=== PATIENT | female | born 1995 | race Two or more races ===

== ENCOUNTER → 2020-10-15 15:04 | Outpatient (BNVA) | payer OTHER, SELFPAY | PROVIDERS: PCP Internal Medicine; Visit Provider Internal Medicine | DX: R07.2 Precordial pain (principal); R06.02 Shortness of breath | CPT/HCPCS: 93005; 99202 ==

== ENCOUNTER 2021-11-22 09:37 | Outpatient (REF) | payer OTHER, SELFPAY ==
[2021-11-23 06:54] LABS: CT PCR NOT DETECTED (Not Detect.); NG PCR NOT DETECTED (Not Detect.)
[2021-11-23 15:39] LABS: BV Int Neg Control Negative (Negative); BV Int Pos Control Positive (Positive)
== END 2021-11-22 09:38 | disposition home or self-care (01) ==
LOC: HO.LAB 09:37
PROVIDERS: PCP Internal Medicine; Visit Provider Advanced Practice Midwife
DX: Z01.419 Encounter for gynecological examination (general) (routine) without abnormal findings (principal); R10.9 Unspecified abdominal pain; R10.2 Pelvic and perineal pain; Z11.3 Encounter for screening for infections with a predominantly sexual mode of transmission; Z11.8 Encounter for screening for other infectious and parasitic diseases; Z11.4 Encounter for screening for human immunodeficiency virus [HIV]; Z11.59 Encounter for screening for other viral diseases; Z87.42 Personal history of other diseases of the female genital tract
CPT/HCPCS: 81025; 87086; 87480; 87491; 87510; 87591; 87660; 88142

== ENCOUNTER 2021-12-01 15:39 | Outpatient (REF) | payer OTHER, SELFPAY ==
--- NOTE | ~2021-12-01 | US_ITS ---
EXAMINATION: US PELVIS CLINICAL INFORMATION: Pelvic pain. History of ovarian cysts. COMPARISON: Previous pelvic ultrasound most recent September 2019 TECHNIQUE: Ultrasound of the pelvis is performed using both transabdominal and transvaginal transducers along with Doppler. Transvaginal imaging is performed due to inadequate visualization transabdominally. FINDINGS: The uterus is anteverted and measures 7.3 x 3.1 x 4.5 cm in dimension. No focal uterine lesion is seen. Endometrial thickness is normal measuring 0.4 cm. The ovaries are normal-appearing. The right ovary measures 3.3 x 1.8 x 2.4 cm. The left ovary measures 3 x 1.9 x 2.7 cm. There is a small 1.2 x 0.8 x 1.3 cm simple left paraovarian or adnexal cyst. There is a small amount of fluid in the pelvis. US/US pelvic and transvaginal IMPRESSION: Small simple 1.2 x 0.8 x 1.3 cm left paraovarian or adnexal cyst.
== END 2021-12-01 15:40 | disposition home or self-care (01) ==
LOC: HO.HMGCX 15:39
PROVIDERS: Visit Provider Advanced Practice Midwife
DX: R10.9 Unspecified abdominal pain (principal); Z20.2 Contact with and (suspected) exposure to infections with a predominantly sexual mode of transmission; Z87.42 Personal history of other diseases of the female genital tract
CPT/HCPCS: 76830; 76856

== ENCOUNTER 2021-12-20 12:32 | Outpatient (REF) | payer OTHER, SELFPAY ==
[2021-12-20 14:48] LABS: Syphilis Screen Nonreactive (Nonreactive)
[2021-12-21 04:35] LABS: HBsAGNum1 0.24 S/CO (0.00-0.99); HIV AB/AG Nonreactive (Nonreactive); HIV Num 1 0.05 S/CO (0.00-0.99); Hepatitis B Surface Antigen Negative (Negative); ~Hepatitis C Antibody Nonreactive (Nonreactive)
== END 2021-12-20 12:33 | disposition home or self-care (01) ==
LOC: HO.LAB 12:32
PROVIDERS: Visit Provider Advanced Practice Midwife
DX: Z01.419 Encounter for gynecological examination (general) (routine) without abnormal findings (principal); Z11.4 Encounter for screening for human immunodeficiency virus [HIV]; Z20.2 Contact with and (suspected) exposure to infections with a predominantly sexual mode of transmission
CPT/HCPCS: 36415; 86780; 86803; 87340; 87389

== ENCOUNTER → 2021-12-24 13:21 | Outpatient (BNVA) | payer OTHER, SELFPAY | PROVIDERS: PCP Internal Medicine; Visit Provider Advanced Practice Midwife | DX: Z30.011 Encounter for initial prescription of contraceptive pills (principal); Z12.4 Encounter for screening for malignant neoplasm of cervix; Z87.42 Personal history of other diseases of the female genital tract | CPT/HCPCS: 99212 ==

== ENCOUNTER → 2022-04-08 09:52 | Outpatient (BNVA) | payer OTHER, SELFPAY | PROVIDERS: PCP Internal Medicine; Visit Provider Advanced Practice Midwife | DX: Z30.41 Encounter for surveillance of contraceptive pills (principal) | CPT/HCPCS: 99212 ==

== ENCOUNTER 2022-05-23 15:05 | Emergency (ER) | payer OTHER, SELFPAY | END 2022-05-23 23:12 | disposition left against medical advice (07) | PROVIDERS: Emergency Provider Emergency Medicine; PCP Internal Medicine | DX: M79.671 Pain in right foot (principal) ==

== ENCOUNTER 2023-03-05 06:45 | Emergency (ER) | payer OTHER, SELFPAY ==
[2023-03-05 06:53] VITALS: BP 102/62; PULSE 111; RESP 18; TEMP 38.4; O2SAT 98; BMI 26.6
[2023-03-05] MEDS: Acetaminophen 325 MG TABLET 650 MG PO (07:29)
[2023-03-05 07:32] LABS: Hematocrit 36.6 % (37.0-47.0); Hemoglobin 11.9 g/dl (12.0-16.0); Mean Corpuscular HGB Conc 32.5 g/dl (31.0-35.0); Mean Corpuscular Hemoglobin 28.7 pg (27.0-33.0); Mean Corpuscular Volume 88.4 fL (80.0-98.0); Mean Platelet Volume 10.7 fL (9.4-12.3); Platelet Count 199 X10*3/uL (160-400); Red Blood Count 4.14 X10*6/uL (4.20-5.50); Red Cell Distribution Width 12.7 % (11.0-16.0); White Blood Count 11.5 X10*3/uL (4.8-10.8)
[2023-03-05 07:45] LABS: Anion Gap 11 (12-20); Blood Urea Nitrogen 7 mg/dL (9-16); Calcium 8.9 mg/dL (8.4-10.2); Carbon Dioxide 24 mmol/L (22-29); Chloride 104 mmol/L (96-108); Creatinine Clr Calc Pharmacy 93.1; Estimated Glomerular Filt Rate > 60; Glucose Random 102 mg/dL (60-115); Potassium 3.8 mmol/L (3.3-5.1); Sodium 135 mmol/L (135-145)
--- NOTE | 2023-03-05 08:36 | ED_ITS ---
HPI - Fever General Chief Complaint: Fever Stated Complaint: Flu like symptoms Time Seen by Provider: 03/05/23 07:40 History of Present Illness HPI Narrative: Patient is 27 years old positive fever positive generalized malaise aches. Patient is from home. Had her immunization for COVID. Minimal coughing. No abdominal pain. No pain on urination or frequency. No travel history. No history of being outside in the [facility]. Related Data Previous Rx's Medication Instructions Recorded desogestrel-e.estradiol 0.15 1 tab PO DAILY #84 tabs 04/08/22 mg-0.02 mg(21)/e.estrad 0.01 mg(5) tablet ibuprofen 400 mg tablet 400 mg PO Q6H PRN pain #20 tabs 03/05/23 Allergies Allergy/AdvReac Type Severity Reaction Status Date / Time No Known Allergies Allergy Verified 03/05/23 07:21 [No Known Allergies*] Review of Systems Review of Systems: Positive fever Yes all other systems are reviewed and are negative PMFSH Past Medical History Attestation statement: The following information was validated with the patient. Surgical History No pertinent past surgical history [place] teeth removed Family History Family History Father Heart disease Mother Diabetes Maternal Grandmother Breast CA Social History Social History Alcohol intake: never Patient Tobacco Use Status: Never used Tobacco Smoked in Last 30 Days: No Use of substances other than those prescribed or required for medical reasons: No Advance Directives: No Advance Directives Information Provided: No Patient : No Gender identity: Female Physical Exam Vital Signs: Vital Signs: Last Vital Signs Temp 98.6 F 03/05/23 08:48 Pulse 92 03/05/23 08:48 Resp 16 03/05/23 08:48 BP 104/67 03/05/23 08:48 Pulse Ox 99 03/05/23 08:48 O2 Del Method Room Air 03/05/23 08:48 BMI result Body Mass Index 26.6 Appearance: Alert. Oriented X3. No acute distress. Eyes: Pupils equal, round and reactive to light. ENT: Pharynx normal. Neck: Normal inspection. Neck supple. No lymph nodes noted. No crepitus CVS: Normal heart rate and rhythm. Pulses normal. Normal S1 and S2 Respiratory: No respiratory distress. Breath sounds normal. No Wheezing. No rales Abdomen: Soft and nontender. No rigidity. No distention. good BS x4 Skin: Skin warm and dry. Normal skin color. Normal skin turgor. Extremities: No lower extremity edema. Neurovascular intact to all extremities. No Lacerations. No Rash Neuro: Oriented X 3. No motor deficit. No sensory deficit. Moving all extermities. No slurred speech Medications Administered Discontinued Medications Generic Name Dose Route Start Last Admin Trade Name Freq PRN Reason Stop Dose Admin Acetaminophen 650 mg 03/05/23 07:16 03/05/23 07:29 Acetaminophen 325 Mg Tablet PO 03/05/23 07:17 650 mg ONCE ONE Administration Medical Decision Making Medical Decision Making [facility] Narrative: Patient's urine was negative for any acute evidence of infection. test was negative no evidence of any -related issues. COVID RSV flu were all negative according to the lab. Patient well appearing likely viral illness. Will have patient take Motrin Tylenol for aches. Close follow-up on an outpatient basis. Differential Diagnosis Differential Diagnoses: The differential diagnosis associated with the presentation includes Viral syndrome, meningitis, UTI, related issue, COVID, flu Lab Data [facility] Lab Attestation statement: I reviewed the patient's lab results. 03/05/23 07:26 03/05/23 07:26 Labs: Lab Results 03/05/23 03/05/23 03/05/23 Range/Units 07: 07:26 08:56 WBC 11.5 H (4.8-10.8) X10*3/uL RBC 4.14 L (4.20-5.50) X10*6/uL Hgb 11.9 L (12.0-16.0) g/dl Hct 36.6 L (37.0-47.0) % MCV 88.4 (80.0-98.0) fL MCH 28.7 (27.0-33.0) pg MCHC 32.5 (31.0-35.0) g/dl RDW 12.7 (11.0-16.0) % Plt Count 199 (160-400) X10*3/uL MPV 10.7 (9.4-12.3) fL Absolute Nucleated RBC 0.000 (0.0-0.012) X10*3/uL Nucleated RBC % (auto) 0.0 (0.0-0.2) /100WBC Sodium 135 (135-145) mmol/L Potassium 3.8 (3.3-5.1) mmol/L Chloride 104 (96-108) mmol/L Carbon Dioxide 24 (22-29) mmol/L Anion Gap 11 L (12-20) BUN 7 L (9-16) mg/dL Creatinine 0.84 (0.5-1.4) mg/dL Estim Creat Clear Calc 93.1 Estimated GFR > 60 Random Glucose 102 (60-115) mg/dL Calcium 8.9 (8.4-10.2) mg/dL Urine Color Yellow Urine Appearance Clear Urine pH 7.0 (5.0-9.0) Ur Specific [place] 1.010 (1.005-1.025) Urine Protein Negative (Neg-Trace) mg/dL Urine Glucose (UA) Negative (Negative) mg/dL Urine Ketones 40 (Negative) mg/dL Urine Blood Negative (Negative) Urine Nitrite Negative (Negative) Ur Leukocyte Esterase Negative (Negative) Urine Test (NEGATIVE) 03/05/23 Range/Units 08:56 WBC (4.8-10.8) X10*3/uL RBC (4.20-5.50) X10*6/uL Hgb (12.0-16.0) g/dl Hct (37.0-47.0) % MCV (80.0-98.0) fL MCH (27.0-33.0) pg MCHC (31.0-35.0) g/dl RDW (11.0-16.0) % Plt Count (160-400) X10*3/uL MPV (9.4-12.3) fL Absolute Nucleated RBC (0.0-0.012) X10*3/uL Nucleated RBC % (auto) (0.0-0.2) /100WBC Sodium (135-145) mmol/L Potassium (3.3-5.1) mmol/L Chloride (96-108) mmol/L Carbon Dioxide (22-29) mmol/L Anion Gap (12-20) BUN (9-16) mg/dL Creatinine (0.5-1.4) mg/dL Estim Creat Clear Calc Estimated GFR Random Glucose (60-115) mg/dL Calcium (8.4-10.2) mg/dL Urine Color Urine Appearance Urine pH (5.0-9.0) Ur Specific [place] (1.005-1.025) Urine Protein (Neg-Trace) mg/dL Urine Glucose (UA) (Negative) mg/dL Urine Ketones (Negative) mg/dL Urine Blood (Negative) Urine Nitrite (Negative) Ur Leukocyte Esterase (Negative) Urine Test NEGATIVE (NEGATIVE) Discharge Plan Discharge Clinical Impression: Viral infection Patient Disposition: Home, Self-Care Instructions: Viral Syndrome (ED) Prescriptions: New ibuprofen 400 mg tablet 400 mg PO Q6H PRN (Reason: pain) Qty: 20 0RF No Action desog-e.estradiol/e.estradiol 0.15-0.02 mgx21 /0.01 mg x 5 tablet 1 tab PO DAILY Qty: 84 4RF Referrals: Juan M Cid MD [Primary Care Provider] -
[2023-03-05 08:48] VITALS: BP 104/67; PULSE 92; RESP 16; TEMP 37; O2SAT 99
[2023-03-05 09:04] LABS: Appearance Urine Clear; Color Urine Yellow; Glucose Urine UA Negative (Negative); Leukocyte Esterase Urine Negative (Negative); Nitrite Urine Negative (Negative); UPreg QC Valid YES; Urine Blood Negative (Negative); Urine Ketones 40 mg/dL (Negative); Urine Pregnancy NEGATIVE (NEGATIVE); Urine Protein Negative (Neg-Trace)
[2023-03-05 09:36] LABS: Influenza A PCR NEGATIVE (Negative); Influenza B PCR NEGATIVE (Negative); Resp Syncy Virus RNA Qual PCR NEGATIVE (Negative); SARS COV2 PCR INHOUSE NEGATIVE (Negative)
== END 2023-03-05 09:42 | disposition home or self-care (01) ==
PROVIDERS: Emergency Provider Emergency Medicine Emergency Medical Services; PCP Internal Medicine
DX: B34.9 Viral infection, unspecified (principal); R50.9 Fever, unspecified; Z20.822 Contact with and (suspected) exposure to COVID-19; Z20.828 Contact with and (suspected) exposure to other viral communicable diseases
CPT/HCPCS: 0241U; 80048; 81003; 81025; 85027; 99283; 99284

== ENCOUNTER 2023-10-09 08:47 | Outpatient (REF) | payer OTHER, SELFPAY ==
--- NOTE | ~2023-10-09 | US_ITS ---
EXAMINATION: US DIAGNOSTIC ULTRASOUND BREAST, RIGHT CLINICAL INFORMATION: Right breast tenderness in the 12-2 o'clock location. COMPARISON: None available. TECHNIQUE: Ultrasound of the 11-3 o'clock region of the right breast breast is performed with real-time nieto scale imaging and color Doppler. FINDINGS: There is no focal suspicious finding. There is no solid mass, architectural abnormality, duct ectasia, or edema in the soft tissue planes. Results are discussed with the patient at time of visit. US/US breast RT limited mamm only IMPRESSION: Normal study ASSESSMENT: BI-RADS 1 - Negative RECOMMENDATION: 1. Patient should be managed based on the clinical impression. 2. Otherwise, routine annual screening mammography. This patient's information was entered into a reminder system with a target due date for their next mammogram.
== END 2023-10-09 08:48 | disposition home or self-care (01) ==
LOC: HO.MAMMO 08:47
PROVIDERS: PCP Internal Medicine; Visit Provider Internal Medicine
DX: N64.4 Mastodynia (principal); Z80.3 Family history of malignant neoplasm of breast; Z80.0 Family history of malignant neoplasm of digestive organs
CPT/HCPCS: 76642

== ENCOUNTER → 2023-10-09 09:00 | Outpatient (BNV) | payer OTHER, SELFPAY | PROVIDERS: PCP Internal Medicine; Visit Provider Radiology Diagnostic Radiology | DX: N64.4 Mastodynia (principal) | CPT/HCPCS: 76642 ==

== ENCOUNTER 2024-08-22 14:44 | Outpatient (REF) | payer OTHER, SELFPAY | END 2024-08-22 14:45 | disposition home or self-care (01) | LOC: HO.LNP 14:44 | PROVIDERS: PCP Internal Medicine; Visit Provider Advanced Practice Midwife | DX: Z01.419 Encounter for gynecological examination (general) (routine) without abnormal findings (principal); N89.8 Other specified noninflammatory disorders of vagina; N20.2 Calculus of kidney with calculus of ureter; Z30.41 Encounter for surveillance of contraceptive pills; Z87.42 Personal history of other diseases of the female genital tract; B37.31 Acute candidiasis of vulva and vagina | CPT/HCPCS: 88175; 99395; 99459 ==

== ENCOUNTER 2024-08-22 14:44 | Outpatient (AMB) | payer OTHER, SELFPAY ==
--- NOTE | 2024-08-22 14:58 | A.OFFVIS_ITS ---
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 Dyer And Washer Required: No Dyer And Washer Services: Dyer And Washer Present Information Interpreted: clinical only Child Protective Services Specialist: Child Protective Services Specialist Present Allergies No Known Allergies [No Known Allergies*] Allergy (Verified 08/22/24 15:03) Medication List - Last Reconciled 08/22/24 by Ludmila Steinberg CNM desog-e.estradiol/e.estradiol 0.15-0.02 mgx21 /0.01 mg x 5 1 tab PO DAILY ibuprofen 400 mg PO Q6H PRN Is last menstrual period known: Yes Last menstrual period: 08/13/24 HPI HPI 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 She just got engaged and she and her fiance are talking about maybe having a baby next year or later in the year. She also wants to get checked because she had a rash in the beginning of July that was very red and itchy and was bothersome and she used a cream that I prescribed for her in the past but she only used it for 4 days because that is all she had but it worked. ( Towards the end of the visit she also added in that she had been on antibiotics for tooth infection at the time and her partner told her it might be a yeast infection because of being on the antibiotics). She thinks she has gained about 20 lb this year. She is on her way to [place] she has a flight at 07:00 o'clock because her grandmother in the family is going to the she will be traveling with her aunt. She has been on control pills for very many years and was started on them when she was young because she had a period of 6 months with no period and she was developing ovarian cysts. Since she started the pills her pill periods have been regular. She lives in [place]. [facility] Surgical History No pertinent past surgical history [place] teeth removed Family History Father Heart disease Mother Diabetes Maternal Grandmother Breast CA Social History Alcohol intake: never Patient Tobacco Use Status: Never used Tobacco Gender identity: Female Female Reproductive History Menstrual Age of Menarche: 15 Duration of menses: 3-5 days Date of last menstrual period: 08/13/24 control method: pills Total pregnancies: 0 Date of last pap smear: 11/22/21 (negative) Physical Exam Vital Signs: Last Vital Signs BP 110/72 08/22/24 14:59 BMI result Body Mass Index 30.3 Const General: healthy appearing, comfortable, no acute distress, well developed and alert Nutritional Appearance: average body habitus Orientation/consciousness: patient oriented x3 Limitations: no limitations HEENT Head: Yes normocephalic Neck Neck: Yes normal visual inspection Chest Chest palpation & inspection: normal inspection of the chest Breast/axilla inspection: normal inspection of the breasts and normal inspection of the axillae Breast/axilla palpation: normal palpation of the breasts and normal palpation of the axillae Resp Effort & Inspection: normal respiratory effort GI Inspection: Yes normal to inspection, No Abdominal wall edema and No distended Palpation (GI): Soft to palpation and nontender Other: External exam within normal limits vagina is pink and moist with normal appearing whitish discharge consistent with OCP use. Cervix is nulliparous pink smooth slightly friable with Pap. Cervix is long close thick mobile nontender uterus anteverted to midposition mobile nontender adnexa nontender fair -good tone with Kegel. General: Yes bladder normal to palpation External Female Exam: normal external appearance and normal appearance of the urethra Speculum Exam - Vagina: normal appearance of the vagina, normal palpation and normal vaginal discharge Speculum Exam - Cervix: normal appearance of the cervix, normal palpation and nontender Bimanual exam- vagina & uterus: normal bimanual exam, normal palpation, uterine size normal, bladder normal to palpation, consistency normal, normal palpation, uterine mobility normal, uterine shape normal, No Cervical tenderness present, non-tender and no cervical motion tenderness Bimanual Exam- Adnexa, other: normal adnexae, no masses, normal and No adnexal tenderness Neuro General: patient oriented x3 Assessment & Plan Assessment & Plan (1) Hx of ovarian cyst: Code(s): Z87.42 - Personal history of other diseases of the female genital tract Category: Medical (2) Well woman exam with routine gynecological exam: Code(s): Z01.419 - Encounter for gynecological examination (general) (routine) without abnormal findings Category: Medical (3) Cervical cancer screening: Comment: 11/22/21 pap= neg Code(s): Z12.4 - Encounter for screening for malignant neoplasm of cervix Category: Medical (4) Surveillance for control, oral contraceptives: Code(s): Z30.41 - Encounter for surveillance of contraceptive pills Category: Medical (5) Encounter for preconception consultation: Comment: Patient planning to get sometime next year. Discussed being on the control pills until she is ready to conceive had history of amenorrhea and cysts prior to going on the pills in the 1st place discussed keeping care careful track of her cycles once she stops pills and is ready to conceive and if she does not conceive within 6 months to seek reproductive assistance. Code(s): Z31.69 - Encounter for other general counseling and advice on procreation Category: Medical (6) Patient desires : Comment: Sometime next year. History of irregular menses and cysts before she was put on control pills pre conception counseling regards this was done today. Code(s): Z31.9 - Encounter for procreative management, unspecified Category: Medical (7) Yeast infection of the vagina: Comment: Not currently, but had it in July. Teaching and refill for Monistat sent Code(s): B37.31 - Acute candidiasis of vulva and vagina Category: Medical Plan -----Discussed in this visit the following: healthy balanced diet, regular and consistent exercise, getting recommended health screens, doing the best she can for her particular health concerns, kegel exercises, pap smear screening and fo llowup recommendations, mammography screening and SBE, normal changes in cycles in her life stage--- She wants to stay on the control pills for now. I did review return to fertility after stopping control pills versus other methods and that normally it can be quite quick. Reviewed starting a multivitamin with folic acid several months ahead of considering conception. Also reviewed the danger signs of side effects of control pills in that she is about to go on a flight to [place] within a couple of hours recommend drinking lots and lots of water before she gets on the plane which will necessitate her getting up and going to the bathroom a couple of times during the flight and to keep her legs moving. She inquired about muscle cramps that she gets it night that respond to massage and I recommend also again drinking more water and also magnesium for those. .-------I discussed with pt some of the optimal strategies for planning a , including achieving the best health she can before , including heathy balanced diet, exercise, wt loss to ideal BMI if appropriate, avoiding toxic substances and medications, not smoking, and taking a multivitamin w folic acid daily. Any specific health concerns should be managed before seeking/ putting oneself at risk of pregancy. In discussing her weight gain in the last year when I raised the subject she suspected that it could very well be that because she is in a happy place with her relationship that is contributing to more weight gain because of less active lifestyle and enjoying dinners together more. In addition I reviewed normal cycles, fertility awareness and signs of ovulation, and timing to avoid, and achieve when she feel ready. I also discussed emotional and relationship and support readiness before embarking on . Also reviewed the it would be good for her to side where she would want to go get care when she does get so that she good start from scratch the beginning of the with the team that will help her get care and also to stay on the control pills until the end of a pack and when she is ready to start the pills to just stopped them then and she might be able to get very soon if she does not get in 6 months with keeping track of her cycle and keeping track of symptoms of ovulation which I did teaching about, then she should seek a referral to reproductive assistance sooner rather than later because of her history of irregular menses and formation of cysts. Also discussed avoiding any further weight gain as that could also exacerbate issues in also she has a family history of diabetes so maintaining a healthy weight is a good thing for life. Reviewed that being on the antibiotics and July probably did contribute to the yeast infection but I reviewed all the other issues that can contribute as well and I am refilling her Monistat prescription so that she has it available to her should she needed again. Orders: Orders Pap Smear Today Z01.419 - Encounter for gynecological examination (general) (routine) without abnormal findings CT NG by PCR Today N89.8 - Other specified noninflammatory disorders of vagina, Z20.2 - Contact with and (suspected) exposure to infections with a predominantly sexual mode of transmission Bacterial Vaginosis Panel Today N89.8 - Other specified noninflammatory disorders of vagina, Z20.2 - Contact with and (suspected) exposure to infections with a predominantly sexual mode of transmission Medications: New miconazole nitrate 2% (Miconazole-7) use for symptoms of yeast infection 1 appful vaginal BEDTIME 45 grams 1RF 7 days Refilled desog-e.estradiol/e.estradiol 0.15-0.02 mgx21 /0.01 mg x 5 1 tab PO DAILY 84 tabs 4RF Coding Level of Care Code Est Pt Prev Care [id number]) Diagnoses Hx of ovarian cyst Z87.42 Well woman exam with routine gynecological exam Z01.419 Cervical cancer screening Z12.4 Surveillance for control, oral contraceptives Z30.41 Encounter for preconception consultation Z31.69 Patient desires Z31.9 Yeast infection of the vagina B37.31
[2024-08-22 14:59] VITALS: BP 110/72; BMI 30.3
== END 2024-08-22 16:25 | disposition home or self-care (01) ==
PROVIDERS: PCP Internal Medicine; Visit Provider Advanced Practice Midwife
DX: Z01.419 Encounter for gynecological examination (general) (routine) without abnormal findings (principal); Z87.42 Personal history of other diseases of the female genital tract; B37.31 Acute candidiasis of vulva and vagina
CPT/HCPCS: 99395; 99459

== ENCOUNTER 2024-08-22 16:08 | Outpatient (REF) | payer OTHER, SELFPAY ==
[2024-08-23 02:23] LABS: CT PCR NOT DETECTED (Not Detect.); NG PCR NOT DETECTED (Not Detect.)
[2024-08-23 08:51] LABS: Bacterial Vaginosis PCR NEGATIVE (Negative); Candida Group PCR DETECTED (Not Detect); Candida glab krusei PCR NOT DETECTED (Not Detect); Trichomonas vaginalis PCR NOT DETECTED (Not Detect)
== END 2024-08-22 16:09 | disposition home or self-care (01) ==
LOC: HO.LAB 16:08
PROVIDERS: Visit Provider Advanced Practice Midwife
DX: N89.8 Other specified noninflammatory disorders of vagina (principal); Z20.2 Contact with and (suspected) exposure to infections with a predominantly sexual mode of transmission
CPT/HCPCS: 81515; 87491; 87591

== ENCOUNTER 2024-10-18 12:03 | Outpatient (REF) | payer OTHER, SELFPAY ==
[2024-10-18 13:11] LABS: MANUAL DIFF FLAG NO
[2024-10-18 13:14] LABS: Basophils Percent Auto 0.6 % (0-2); Eosinophils Absolute Auto 0.2 X10*3/uL (0.0-0.4); Eosinophils Percent Auto 2.3 % (0-4); Hematocrit 37.9 % (37.0-47.0); Hemoglobin 12.4 g/dl (12.0-16.0); Imm Gran Abs Auto 0.07 X10*3/uL (0.00-0.03); Lymphocytes Absolute Auto 1.9 X10*3/uL (1.2-4.9); Lymphocytes Percent Auto 27.3 % (20-40); Mean Corpuscular HGB Conc 32.7 g/dl (31.0-35.0); Mean Corpuscular Hemoglobin 28.2 pg (27.0-33.0); Mean Corpuscular Volume 86.3 fL (80.0-98.0); Mean Platelet Volume 11.2 fL (9.4-12.3); Monocytes Absolute Auto 0.5 X10*3/uL (0.1-1.2); Monocytes Percent Auto 6.4 % (2-11); Neutrophils Absolute Auto 4.4 x10*3/uL (2.0-8.3); Neutrophils Percent Auto 62.4 % (45-73); Platelet Count 279 X10*3/uL (160-400); Red Blood Count 4.39 X10*6/uL (4.20-5.50); Red Cell Distribution Width 12.7 % (11.0-16.0); White Blood Count 7.1 X10*3/uL (4.8-10.8)
--- OUTSIDE RECORDS SUMMARY | 2024-10-18 13:50 | XMS_ITS | Encounter Summary ---
Author Organization [employer] Address [address] [place] [address] Care Team Providers Care Die Keeper Name Role Phone Juan M Cid MD Primary Care Prov ider Reason for Visit * Reason Onset Date Comments Nurse Triage 10/18/2024 Encounter Details Date Type Department Care Team (Late st Contact Info) Description 10/18/2024 Telephone [facility] [address] [address] Akira Ritter MD [address] [place] [address] Nurse Triage Social History Tobacco Use Types Packs/Day Years Used Date Smoking Tobacco: Never Passive Smoke Exposure: Never Smokeless Tobacco: Never Alcohol Use Standard Drinks/Week Comments Never 0 (1 standard drink = 0.6 oz pur e alcohol) Comments Unknown Sex and Gender Information Value Date Recorded Sex Assigned at Female 06/13/2022 10:28 AM EDT Legal Sex Female 10:28 AM EDT Gender Identity Female 06/13/2022 10:28 AM EDT Sexual Orientation Straight 06/13/2022 10 :28 AM EDT documented as of this encounter Miscellaneous Notes * Telephone Encounter - Crystal Quinn RN - 10/18/2024 11:12 AM EST senior air director: Patient presents to walk-in center with intermittent dizziness/ chest tightness and headache. Yenny reports she was at work this morning when she suddenly felt dizzy. She reports she blacked out. She does not think she lost consciousness as she recalls the event. She reports she then satdown and drank some water and started to feel better. She reports she has been having intermittent dizziness for years and states that she has had multiple syncopal episodes. Last about 2 years ago during a wedding. Reports she was given IV fluids and felt better. Patient reports she has gone to a form maker plaster in the past in [place] and they told her she hasa strong heart like an athlete. Patient and Mom are unsure what tests were performed with cardiology. No records available from this time. She also reports a moderate-severe headache x 4 days at the base of her skull. No known Hx of migraines. Currently, she denies any chest pain/ tightness. Denies any current visual disturbances. Ongoing dizziness and headache. Denies chance of . Vitals: BP 115/84 HR 88 RR 18 SpO2 99% on room air EKG performed in office Plan: Report to Dr. Ritter Provider in to see patient now Patient verbalizes understanding and agreement with plan of care at this time. Crystal Quinn RN documented in this encounter Plan of Treatment Not on file documented as of this encounter Visit Diagnoses Not on filedocumented in this encounter Care Teams Die Keeper Relationship Specialty Start Date End Date Juan M Cid MD [address] [place] [id number] PCP - General Internal Medicine 12/26/19 documented as of this encounter
--- OUTSIDE RECORDS SUMMARY | 2024-10-18 13:50 | XMS_ITS | Clinical Summary ---
Author Organization [facility] Address [address] [place] [address] Care Team Providers Care Insurance Adviser Name Role Phone Unavailable Primary Care Provider Unavailabl e Social History Tobacco Use Types Packs/Day Years Used Date Smoking Tobacco: Never Assessed Comments Unknown Sex and Gender Information Value Date Recorded Sex Assigned at Not on file Legal Sex Female 1:57 PM EST Gender Identity Not on file Sexual Orientation Not on file Plan of Treatment Health Maintenance Due Date Last Done Comments DTaP,Tdap,and Td Vaccines (1 - Tdap) 11/27/2014 Hepatitis B Vaccines (1 of 3 - 19+ 3-dose series) 11/27/2014 Cervical Cancer Screening: P ap Smear 11/27/2016 COVID-19 Vaccine ( - 2023-2 5 season) 2024 Influenza Vaccine (#1) 2024 HIB Vaccines Aged Out No longer eligi ble based on patient's age to complete this topic HPV Vaccines Aged Out No longer eligi ble based on patient's age to complete this topic Hepatitis A Vaccines Aged Out No long er eligible based on patient's age to complete this topic IPV Vaccines Aged Out No longer eligi ble based on patient's age to complete this topic MMR Vaccines Aged Out No longer eligi ble based on patient's age to complete this topic Meningococcal ACWY Vaccine Aged Out N o longer eligible based on patient's age to complete this topic Meningococcal B Vacine Aged Out No lo nger eligible based on patient's age to complete this topic Pneumococcal Vaccine: Pediat rics (0 to 5 Years) and At-Risk Patients (6 to 64 Years) Aged Out No longer eligible b ased on patient's age to complete this topic RSV Immunization Patients Un floyd 20 months Aged Out No longer eligible b ased on patient's age to complete this topic Varicella Vaccines Aged Out No longer eligible based on patient's age to complete this topic
--- OUTSIDE RECORDS SUMMARY | 2024-10-18 13:50 | XMS_ITS | Encounter Summary ---
Author Organization [employer] Address [address] [address] Care Team Providers Care Director Of Market Analysis Name Role Phone Juan M Cid MD Primary Care Prov ider Encounter Details Date Type Department Care Team (Latest Contact Info) Description 10/03/2019 Abstract [facility] Dental, Provider, DDS Social History Tobacco Use Types Packs/Day Years Used Date Smoking Tobacco: Never Assessed Comments Unknown Sex and Gender Information Value Date Recorded Sex Assigned at Female 06/13/2022 10:28 AM EDT Legal Sex Female 10:28 AM EDT Gender Identity Female 06/13/2022 10:28 AM EDT Sexual Orientation Straight 06/13/2022 10 :28 AM EDT documented as of this encounter Plan of Treatment Not on file documented as of this encounter Visit Diagnoses Not on filedocumented in this encounter Care Teams Director Of Market Analysis Relationship Specialty Start Date End Date Juan M Cid MD [address] [place] [id number] PCP - General Internal Medicine 12/26/19 documented as of this encounter
--- OUTSIDE RECORDS SUMMARY | 2024-10-18 13:50 | XMS_ITS | Encounter Summary ---
Author Organization [employer] Address [address] [place] [address] 7 [place] [address] Care Team Providers Care Route Specialist Name Role Phone Juan M Cid MD Primary Care Prov ider Reason for Visit * Reason Comments Dizziness Encounter Details Date Type Department Care Team (Late st Contact Info) Description 10/18/2024 11:20 AM EST Office Visit [facility] [address] [place] [phone] Akira Ritter MD [address] [place] [address] Dizziness (Primary Dx); Viral URI; Chest tightness Social History Tobacco Use Types Packs/Day Years [...] AM EDT documented as of this encounter Last Filed Vital Signs Vital Sign Reading Time Taken Comments Blood Pressure 115/84 10/18/2024 11:09 AM EST Pulse 88 10/18/2024 11:09 AM EST Temperature - - Respiratory Rate 18 10/18/2024 11:09 AM EST Oxygen Saturation 100% 10/18/2024 12:14 PM EST Inhaled Oxygen Concentration - - Weight - - Height - - Body Mass Index - - documented in this encounter Progress Notes * Akira Ritter MD - 10/18/2024 11:20 AM EST Subjective History was provided by the patient. Yenny Spears is a 28 y.o. female who presents for evaluation of dizziness at work today. 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 Developed dizziness, chest tightness, and blurry vision today. Has been having occipital TAYLOR for 4 days with feeling of run down and congestion, fever, and chills. Denies LOC. Feeling better after sitting down and drinking water. Currently on OCP for control. LMP 1 week ago. Denies any focal weakness. History of syncope few years ago in a setting of dehydration. Doing better with ample hydration now. Objective Vitals: 10/18/24 1109 10/18/24 1214 BP: 115/84 BP Location: Left arm Patient Position: Sitting BP Cuff Size: Adult Pulse: 88 Resp: 18 SpO2: 100% Physical Exam Vitals reviewed. Constitutional: Appearance: Normal appearance. She is normal weight. HENT: Head: Normocephalic and atraumatic. Right Ear: Tympanic membrane, ear canal and external ear normal. Left Ear: Tympanic membrane, ear canal and external ear normal. Nose: Nose normal. Mouth/Throat: Mouth: Mucous membranes are moist. Pharynx: Oropharynx is clear. Eyes: Extraocular Movements: Extraocular movements intact. Conjunctiva/sclera: Conjunctivae normal. Pupils: Pupils are equal, round, and reactive to light. Cardiovascular: Rate and Rhythm: Normal rate and regular rhythm. Heart sounds: Normal heart sounds. Pulmonary: Effort: Pulmonary effort is normal. Breath sounds: Normal breath sounds. Musculoskeletal: General: Normal range of motion. Cervical back: Normal range of motion and neck supple. Lymphadenopathy: Cervical: No cervical adenopathy. Skin: General: Skin is warm and dry. Neurological: General: No focal deficit present. Mental Status: She is alert and oriented to person, place, and time. Mental status is at baseline. Cranial Nerves: No cranial nerve deficit. Sensory: No sensory deficit. Motor: No weakness. Coordination: Coordination normal. Gait: Gait normal. Deep Tendon Reflexes: Reflexes normal. Psychiatric: Mood and Affect: Mood normal. Behavior: Behavior normal. Thought Content: Thought content normal. Judgment: Judgment normal. Yenny was seen today for dizziness. Diagnoses and all orders for this visit: Dizziness (Primary) - CBC auto differential; Future - Basic Metabolic Panel; Future - TSH W/Reflex to FT4; Future Viral URI - POCT Rapid Influenza B ROSARIO ID NOW - POCT Rapid Influenza A ROSARIO ID NOW - POCT Rapid Covid-19 BinaxNOW Chest tightness - ECG [address] presents [address] [facility] with 1-day duration of dizziness and occipital TAYLOR in a setting of resolvingviral URI Rapid COVID-19 and Influenza A/B negative URI symptoms improving Normal pulmonary exam and no respiratory distress O2 sat reassuring EKG unremarkable Check CBC, BMP, and TSH Non-focal, normal neurologic exam with intact CN 2-12 Encouraged to continue with ample hydration and rest Discussed supportive care OTC supportive medications reviewed Droplet precautions discussed Advised to contact the clinic if no improvement of symptoms Indications for UC/ER use reviewed documented in this encounter Plan of Treatment Scheduled Orders Name Type Priority Associated Diagnoses Orde r Schedule Basic Metabolic Panel Lab Routine Dizziness Expected: 10/18/2024 (Approximate), Expires: 10/18/2025 TSH W/Reflex to FT4 Lab Routine Dizziness Expected: 10/18/2024 (Approximate), Expires: 10/18/2025 documented as of this encounter Procedures Procedure Name Priority Date/Time Associated Diagnosis Comments ECG 12-LEAD Routine 10/18/2024 12:13 PM EST Chest tightness CBC WITH AUTO DIFFERENTIAL Routine 10/18/2024 12:05 PM EST Dizziness POCT INFLUENZA B (ID NOW RAPID MOLECULAR) Routine 10/18/2024 11:53 AM EST Viral URI POCT INFLUENZA A (ID NOW RAPID MOLECULAR) Routine 10/18/2024 11:53 AM EST Viral URI POCT RAPID COVID ANTIGEN Routine 10/18/2024 11:53 AM EST Viral URI documented in this encounter Results * ECG 12 lead (10/18/2024 12:13 PM EST) Narrative Akira Ritter MD - 10/18/2024 12:13 PM EST NSR 77, no ST-T changes, no Q-waves, no arrhythmia us Akira Ritter MD ECG ORDERABLES Final Result * (ABNORMAL) CBC auto differential (10/18/2024 12:05 PM EST) White Blood Count 7.1 4.8 - 10.8 X10*3/uL [facility] Red Blood Count 4.39 4.20 - 5.50 X10*6/uL [facility] Hemoglobin 12.4 12.0 - 16.0 g/dl [facility] Hematocrit 37.9 37.0 - 47.0 % [facility] Mean Corpuscular Volume 86.3 80.0 - 98.0 fL [facility] Mean Corpuscular Hemoglobin 28.2 27.0 - 33.0 pg [facility] Mean Corpuscular HGB Conc 32.7 31.0 - 35.0 g/dl [facility] Red Cell Distribution Width 12.7 11.0 - 16.0 % [facility] Platelet Count 279 160 - 400 X10*3/uL [facility] Mean Platelet Volume 11.2 9.4 - 12.3 fL [facility] Neutrophils Percent Auto 62.4 45 - 73 % [facility] Imm Gran Pct Auto 1.0(H) 0.0 - 0.4 % [facility] Lymphocytes Percent Auto 27.3 20 - 40 % [facility] Monocytes Percent Auto 6.4 2 - 11 % [facility] Eosinophils Percent Auto 2.3 0 - 4 % [facility] Basophils Percent Auto 0.6 0 - 2 % [facility] NRBC Pct Auto 0.0 0.0 - 0.2 /100WBC [facility] Neutrophils Absolute Auto 4.4 2.0 - 8.3 x10*3/uL [facility] Imm Gran Abs Auto 0.07(H) 0.00 - 0.03 X10*3/uL [facility] Lymphocytes Absolute Auto 1.9 1.2 - 4.9 X10*3/uL [facility] Monocytes Absolute Auto 0.5 0.1 - 1.2 X10*3/uL [facility] Eosinophils Absolute Auto 0.2 0.0 - 0.4 X10*3/uL [facility] Basophils Absolute Auto 0.0 0.0 - 0.2 X10*3/uL [facility] NRBC Abs Auto 0.000 0.0 - 0.012 X10*3/uL [facility] Blood Venous blood specimen / Unknown 10/18/2024 12:05 PM EST 10/18/2024 1:08 PM EST us Akira Ritter MD LAB BLOOD ORDERABLES Final Resul t Performing Organization Address [facility]/ZIP Co de Phone Number [facility] [address] [place] [phone] * POCT Rapid Covid-19 BinaxNOW (10/18/2024 11:53 AM EST) [facility] Rapid COVID Ag Negative Swab 10/18/2024 11:5 3 AM EST us Akira Ritter MD POINT OF CARE TEST ENTER/EDIT OR DERABLES Final Result * POCT Rapid Influenza A ROSARIO ID NOW (10/18/2024 11:53 AM EST) [facility] Influenza A Negative Negative, Indeterminate [facility] Swab 10/18/2024 11:5 3 AM EST us Akira Ritter MD POINT OF CARE TEST ENTER/EDIT OR DERABLES Final Result Performing Organization Address [facility]/ZIP Co de Phone Number [facility] [address] [place] [phone] * POCT Rapid Influenza B ROSARIO ID NOW (10/18/2024 11:53 AM EST) [facility] Influenza B Negative Negative, Indeterminate [facility] Swab 10/18/2024 11:5 3 AM EST us Akira Ritter MD POINT OF CARE TEST ENTER/EDIT OR DERABLES Final Result [facility] [address] [place] [phone] [phone] documented in this encounter Visit Diagnoses Diagnosis Dizziness- Primary Dizziness and giddiness Viral URI Acute upper respiratory infections of unspecified site Chest tightness Other chest pain documented in this encounter Care Teams Route Specialist Relationship Specialty Start Date End Date Juan M Cid MD [address] [place] [phone] PCP - General Internal Medicine 12/26/19 documented as of this encounter
--- OUTSIDE RECORDS SUMMARY | 2024-10-18 13:50 | XMS_ITS | Encounter Summary ---
Author Organization [facility] Address [address] [place] [address] [address] [place] [address] Care Team Providers Care Subsystems Engineer Name Role Phone Juan M Cid MD Primary Care Prov ider Encounter Details Date Type Department Care Team (Late st Contact Info) Description 05/10/2023 Orders Only [facility] [address] [place] [phone] Provider, MD Yoandy Social History Tobacco Use Types Packs/Day Years [...] on file documented as of this encounter Procedures Procedure Name Priority Date/Time Associated Diagnosis Comments HM PAP/HPV Routine 11/22/2021 documented in this encounter Results * Hm Pap Smear (11/22/2021) Historical Provider HEALTH MAINTENANCE Final Result documented in this encounter Visit Diagnoses Not on filedocumented in this encounter Care Teams Subsystems Engineer Relationship Specialty Start Date End Date Juan M Cid MD [address] [place] [address] PCP - General Internal Medicine 12/26/19 documented as of this encounter
--- OUTSIDE RECORDS SUMMARY | 2024-10-18 13:50 | XMS_ITS | Clinical Summary ---
Author Organization [employer] Address [address] [place] [address] [address] [place] [address] Care Team Providers Care International Tax Manager Name Role Phone Juan M Cid MD Primary Care Prov ider Allergies No known active allergies Medications ibuprofen (Ibuprofen 100 Kayden Strength) 100 MG chewable tablet 400 mg. 3 Active ibuprofen 400 MG tablet 3 Active Kariva 0.15-0.02/0.01 MG (01/01) tablet Take 1 tablet by mouth in the morning. 3 Active docosanol cream (Abreva) 10 % cream cream Apply 1 application topically 5 (five) times a day. 2 g 3 Active triamcinolone (Kenalog) 0.1 % creamIndications :Rash and nonspecific skin eruption Apply topically 2 times daily. Use for up to 1 week. 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 Cervical cancer screening 03/07/2023 Hx of ovarian cyst 03/07/2023 Potential exposure to STD 03/07/2023 Precordial chest pain 03/07/2023 Right sided abdominal pain 03/07/2023 Shortness of breath 03/07/2023 Surveillance for control, oral contracepti ves 03/07/2023 Viral infection 03/07/2023 Well woman exam with routine gynecological exam 09/20/2022 Chronic idiopathic constipation 09/20/2022 Assessment & Plan (09/20/2022 11:07 PM EST): Will order blood test to rule out secondary causes, reinforced high fiber diet and increase water ingestion Encounters Date Type Department Care Team Description 10/18/2024 11:20 AM EST Office Visit [facility] [address] [place] [address] Akira Ritter MD Dizziness (Primary Dx); Viral URI; Chest tightness 10/18/2024 Telephone [facility] [address] [place] [address] Akira Ritter MD Nurse Triage from Last 3 Months Immunizations Name Administration Dates Next Due DTaP / Hep B / IPV 12/24/1999 DTaP, 5 pertussis antigens 03/24/1997,,04/03/1996,02/01 HPV 9-Valent 10/15/2015,09/02/2011 HPV, Unspecified 11/16/2011 Hep A, Adult 01/13/2012 Hep A, ped/adol, 2 dose 07/14/2011 Hep B, adult 08/08/1996,04/03/1996,02/02/1996 HiB, unspecified 03/24/1997,06/03/1996, 6 Hib (PRP-T) 03/04/1996 IPV 12/24/1999, 6,04/03/1996,02/01 Influenza injectable quadriv alent IIV4 with preservative 07/31/2015 MMR 12/24/1999,1996 Meningococcal MCV4P ACYW-135 01/31/2019,07/14/20 11 Moderna Covid-19 Vaccine 12+ 09/10/2021,12/06/19 21,11/07/2020 Tdap 04/24/2015 Varicella 09/02/2011,07/14/2011 Family History Medical History Relation Name Comments Breast cancer Maternal Grandmother Colon cancer Paternal Grandfather Relation Name Status Comments Maternal Grandmother Paternal Grandfather Social History Tobacco Use Types Packs/Day Years Used Date Smoking Tobacco: Never Passive Smoke Exposure: Never Smokeless Tobacco: Never Tobacco Cessation:Counseling Given: Not Answered Alcohol Use Standard Drinks/Week Comments Never 0 (1 standard drink = 0.6 oz pur e alcohol) Comments Unknown Sex and Gender Information Value Date Recorded Sex Assigned at Female 06/13/2022 10:28 AM EDT Legal Sex Female 10:28 AM EDT Gender Identity Female 06/13/2022 10:28 AM EDT Sexual Orientation Straight 06/13/2022 10 :28 AM EDT Last Filed Vital Signs Vital Sign Reading Time Taken Comments Blood Pressure 115/84 10/18/2024 11:09 AM EST Pulse 88 10/18/2024 11:09 AM EST Temperature 36.2 ??C (97.1 ??F) 10/10/2023 10:[address] Respiratory Rate 18 10/18/2024 11:09 AM EST Oxygen Saturation 100% 10/18/2024 12:14 PM EST Inhaled Oxygen Concentration - - Weight 71.2 kg (157 lb) 10/10/2023 10:59 AM EST Height 162 cm (5' 3.78 ) 10/10/2023 10:59 AM EST Body Mass Index 27.14 10/10/2023 10:59 AM EST Plan of Treatment Health Maintenance Due Date Last Done Comments Depression Screening 1995 SDOH Screening 1995 Alcohol/Substance Use Screening 2007 Family Planning (PISQ) 11/27/2010 COVID-19 Vaccine ( season) 2024 09/10/2021, 12/05/2020, 11/07/2020 Influenza Vaccine (#1) 2024 07/31/2015 Tobacco Screening 10/10/2024 10/10/2023 DTaP/Tdap/Td Vaccines (7 - Td or Tdap) 04/24/2025 04/24/2015, 12/24/1999, 03/24/1997, Additional history exists Pap Smear 08/22/2027 08/22/2024, 11/22/2021 Zoster Vaccines (1 of 2) 11/27/2045 RSV Patients and Patients Aged 60 years or older (1 - 1-dose 75+ series) 11/27/2070 HIB Vaccines Completed 03/24/1997, 05/15, 04/03/1996, Additional history exists Hepatitis B Vaccines Completed 12/24/1999, 08/08/1996, 04/03/1996, Additional history exists IPV Vaccines Completed 12/24/1999, 12/12, 06/03/1996, Additional history exists Hepatitis A Vaccines Completed 01/13/2012, 07/14/20 11 HPV Vaccines Completed 10/15/2015, 04/0 11/2011, 09/02/2011 Meningococcal Vaccine Aged Out 01/31/2019, 011 No longer eligible based on patient's age to complete this topic HIV Screening Completed 09/23/2022, 12/20/2021 Hepatitis C Screening Completed 09/23/2022, 022 Pneumococcal Vaccine: Pediatrics (0 to 5 Years) and At-Risk Patients (6 to 49) Years) Aged Out No longer eligible based on patient's age to complete this topic RSV under 20 months Aged Out No longe r eligible based on patient's age to complete this topic Rotavirus Vaccines Aged Out No longer eligible based on patient's age to complete this topic Procedures Procedure Name Priority Date/Time Associated Diagnosis Comments ECG 12-LEAD Routine 10/18/2024 12:13 PM EST Chest tightness CBC WITH AUTO DIFFERENTIAL Routine 10/18/2024 12:05 PM EST Dizziness POCT RAPID COVID ANTIGEN Routine 10/18/2024 11:53 AM EST Viral URI POCT INFLUENZA A (ID NOW RAPID MOLECULAR) Routine 10/18/2024 11:53 AM EST Viral URI POCT INFLUENZA B (ID NOW RAPID MOLECULAR) Routine 10/18/2024 11:53 AM EST Viral URI PAP SMEAR Routine 08/22/2024 4:08 PM EST HEPATITIS C AB W/REFL TO HCV RNA, QN, PCR Routine 09/23/2022 8:40 AM EST Encounter for other general examination HIV 1 RNA, QN PCR W/RFL ANAHI (RTI,PI,INTEGRASE) Routine 09/23/2022 8:40 AM EST Encounter for other general examination from Last 3 Months or Most Recently Relevant to Health Maintenance Results * ECG 12 lead (10/18/2024 12:13 PM EST) Akira Warren MD - 10/18/2024 12:13 PM EST NSR 77, no ST-T changes, no Q-waves, no arrhythmia us Akira Ritter MD ECG ORDERABLES Final Result * (ABNORMAL) CBC auto differential (10/18/2024 12:05 PM EST) White Blood Count 7.1 4.8 - 10.8 X10*3/uL [facility] Red Blood Count 4.39 4.20 - 5.50 X10*6/uL [facility] Hemoglobin 12.4 12.0 - 16.0 g/dl [facility] Hematocrit 37.9 37.0 - 47.0 % [facility] Mean Corpuscular Volume 86.3 80.0 - 98.0 fL [facility] Mean Corpuscular Hemoglobin 28.2 27.0 - 33.0 pg [facility] Mean Corpuscular HGB Conc 32.7 31.0 - 35.0 g/dl [facility] Red Cell Distribution Width 12.7 11.0 - 16.0 % [facility] Platelet Count 279 160 - 400 X10*3/uL [facility] Mean Platelet Volume 11.2 9.4 - 12.3 fL [facility] Neutrophils Percent Auto 62.4 45 - 73 % [facility] Imm Gran Pct Auto 1.0(H) 0.0 - 0.4 % [facility] Lymphocytes Percent Auto 27.3 20 - 40 % [facility] Monocytes Percent Auto 6.4 2 - 11 % [facility] Eosinophils Percent Auto 2.3 0 - 4 % [facility] Basophils Percent Auto 0.6 0 - 2 % [facility] NRBC Pct Auto 0.0 0.0 - 0.2 /100WBC [facility] Neutrophils Absolute Auto 4.4 2.0 - 8.3 x10*3/uL [facility] Imm Gran Abs Auto 0.07(H) 0.00 - 0.03 X10*3/uL [facility] Lymphocytes Absolute Auto 1.9 1.2 - 4.9 X10*3/uL [facility] Monocytes Absolute Auto 0.5 0.1 - 1.2 X10*3/uL [facility] Eosinophils Absolute Auto 0.2 0.0 - 0.4 X10*3/uL [facility] Basophils Absolute Auto 0.0 0.0 - 0.2 X10*3/uL [facility] NRBC Abs Auto 0.000 0.0 - 0.012 X10*3/uL [facility] Blood Venous blood specimen / Unknown 10/18/2024 12:05 PM EST 10/18/2024 1:08 PM EST us Akira Ritter MD LAB BLOOD ORDERABLES Final Resul t Performing Organization Address City/[facility]/ZIP Co de Phone Number [facility] [address] [place] [phone] * POCT Rapid Influenza B ROSARIO ID NOW (10/18/2024 11:53 AM EST) [facility] Influenza B Negative Negative, Indeterminate [facility] Swab 10/18/2024 11:5 3 AM EST us Akira Ritter MD POINT OF CARE TEST ENTER/EDIT OR DERABLES Final Result Performing Organization Address [facility] Co de Phone Number [facility] [address] [place] [phone] * POCT Rapid Influenza A ROSARIO ID NOW (10/18/2024 11:53 AM EST) [facility] Influenza A Negative Negative, Indeterminate [facility] Swab 10/18/2024 11:5 3 AM EST us Akira Ritter MD POINT OF CARE TEST ENTER/EDIT OR DERABLES Final Result [facility] [address] [place] [phone] [phone] * POCT Rapid Covid-19 BinaxNOW (10/18/2024 11:53 AM EST) Rapid COVID Ag Negative Swab 10/18/2024 11:5 3 AM EST us Aikra Ritter MD POINT OF CARE TEST ENTER/EDIT OR DERABLES Final Result * Pap Smear (08/22/2024 4:08 PM EST) 08/22/2024 4:08 PM EST 08/23/2024 8:50 AM EST Narrative [facility] - 08/29/2024 9:59 AM EST ----- ------- Name: Colon,Yenny ? Age/Sex: 28/F ? : 1995 Unit#: [id number] ?? Attend Dr: Ludmila Steinberg CNM ?Re08/22/24 ?Status: DEP REF ? Location: HO.LNP ?Disch: ? ----- ------- SPEC : [id number] ?RECD: 08/23/24 ? STATUS: ??SOUT ? REQ NUM: [id number] ? MARBELLA: 08/22/24 ? SUBM DR: Ludmila Steinberg CNM ? ENTERED: ??08/23/24 ?SP TYPE: Pap Smr ?OTHR DR: Juan M Cid MD ORDERED: ??Pap Smear ? Interpretation ?? Satisfactory for evaluation. ?? Negative for intraepithelial lesion or malignancy. ?? No endocervical cells seen. ?Clinical Information LMP: 08/13/24 Previous PAP test: 2021, negative Other surgery: Other history: ? Material Received ?? ThinPrep-Cervical Copies To: ?? Juan M Cid MD ?? [facility] ?? [address] ?? [place] [address] ?? [phone] ?? Ludmila Steinberg CNM ?? [facility] ?? [address] ?? [place] [address] ?? [phone] ----- ------- Signed (signature on file) KENTON Floyd ([facility]) 08/29/24 0959 ? ----- ------- ? END OF REPORT ? us Generic External Data Provider LAB CYTOLOGY JUANY GOODSON Final Result [facility] [address] [place] [address] [phone] * HIV-1 RNA, Quantitative, Real-Time PCR with Reflex to Genotype (RTI, PI, Integrase) (09/23/2022 8:40 AM EST) [facility] HIV 1 RNA, QN PCR NOT DETECTED copies/mL [facility], HIV 1 RNA, QN PCR NOT DETECTED Log copies/mL [facility], Comment: REFERENCE RANGE: NOT DETECTED copies/mL ?NOT DETECTED ??Log copies/mL This test was performed using Real-Time Polymerase Chain Reaction. Reportable range is 20 to 10,000,000 copies/mL (1.30-7.00 Log copies/mL). 09/23/2022 8:40 AM EST 09/23/2022 8:41 AM EST Narrative [facility] - 09/28/2022 11:47 PM EST FASTING:YES FASTING: YES Juan M Ramos MD LAB BLOOD ORDERABL ES Final Result Performing Organization Address [facility] de Phone Number [facility] [address], [place] [address] [facility] [place], [address] [place] [address] * Hepatitis C Antibody with Reflex to HCV, RNA, Quantitative, Real-Time PCR (09/23/2022 8:40 AM EST) Hepatitis C Antibody NON-REACT OXANA NON-REACT OXANA [facility] [place] [facility] Index 0.13 <1.00 [facility] Comment: HCV antibody was non-reactive. There is no laboratory evidence of HCV infection. In most cases, no further action is required. However, if recent HCV exposure is suspected, a test for HCV RNA (test code 97976) is suggested. For additional information please refer to http://education.F2G/faq/MHL67h3 (This link is being provided for informational/ educational purposes only.) Blood Venous blood specimen / Unknown 09/23/2022 8:40 AM EST 09/23/2022 8:41 AM EST Narrative [facility] - 09/28/2022 11:47 PM EST FASTING:YES FASTING: YES Juan M Ramos MD LAB BLOOD ORDERABL ES Final Result Performing Organization Address [facility] Co de Phone Number [facility] [address] [place] [address], [place] [phone] [facility] [facility] [place] [facility] [address] [place] [address], ([address]) [place] [phone] from Last 3 Months or Most Recently Relevant to Health Maintenance Insurance [address] [place], [place] [address] Care Teams International Tax Manager Relationship Specialty Start Date End Date Juan M Cid MD [address] [place] [phone] PCP - General Internal Medicine 12/26/19
[2024-10-18 13:56] LABS: Anion Gap 10 (12-20); Blood Urea Nitrogen 12 mg/dL (9-16); Calcium 9.6 mg/dL (8.4-10.2); Carbon Dioxide 24 mmol/L (22-29); Chloride 107 mmol/L (96-108); Estimated Glomerular Filt Rate > 60; Glucose Random 83 mg/dL (60-115); Potassium 3.9 mmol/L (3.3-5.1); Sodium 137 mmol/L (135-145)
[2024-10-18 14:17] LABS: TSH reflex Free T4 1.72 uIU/mL (0.32-4.0)
== END 2024-10-18 12:04 | disposition home or self-care (01) ==
LOC: HO.HHCL 12:03
PROVIDERS: Visit Provider Family Medicine
DX: R42 Dizziness and giddiness (principal)
CPT/HCPCS: 36415; 80048; 84443; 85025

== ENCOUNTER 2025-04-01 10:00 | Outpatient (REF) | payer OTHER, SELFPAY ==
[2025-04-01 11:03] LABS: MANUAL DIFF FLAG NO
--- OUTSIDE RECORDS SUMMARY | 2025-04-01 11:13 | XMS_ITS | Encounter Summary ---
Author Organization [employer] Address [address] [place] [address] [place] [address] Care Team Providers Care Putty Glazer Name Role Phone Juan M Cid MD Primary Care Prov ider Encounter Details Date Type Department Care Team (Late st Contact Info) Description 05/10/2023 Orders Only [facility] [address] [place] [id number] Provider, MD Yoandy Social History Tobacco Use [...] on filedocumented in this encounter Care Teams Putty Glazer Relationship Specialty Start Date End Date Juan M Cid MD [address] [place] [address] PCP - General Internal Medicine 12/26/19 documented as of this encounter
--- OUTSIDE RECORDS SUMMARY | 2025-04-01 11:13 | XMS_ITS | Clinical Summary ---
Author Organization [facility] ity Address [address] [place] [address] Care Team Providers Care Engineering And Scientific Programmer Name Role Phone Unavailable Primary Care Provider [...] Vaccine ( - 2023-2 5 season) 2024 Depression Screening 08/14/2024 Influenza Vaccine (#1) 2025 HIB Vaccines Aged Out No longer eligi [...] age to complete this topic Meningococcal B Vaccine Aged Out No l onger eligible based on patient's age to complete this topic Pneumococcal Vaccine: Pediat rics (0 to 5 Years) and At-Risk Patients (6 to 49 Years) Aged Out No longer eligible b ased on patient's age to complete this topic RSV Immunization Patients Un floyd 20 months Aged Out No longer eligible b ased on patient's age to complete this topic Varicella Vaccines Aged Out No longer eligible based on patient's age to complete this topic
[2025-04-01 11:15] LABS: Hematocrit 38.5 % (37.0-47.0); Hemoglobin 12.7 g/dl (12.0-16.0); Imm Gran Abs Auto 0.04 X10*3/uL (0.00-0.03); Imm Gran Pct Auto 0.3 % (0.0-0.4); Lymphocytes Absolute Auto 1.3 X10*3/uL (1.2-4.9); Mean Corpuscular HGB Conc 33.0 g/dl (31.0-35.0); Mean Corpuscular Hemoglobin 29.3 pg (27.0-33.0); Mean Corpuscular Volume 88.9 fL (80.0-98.0); NRBC Abs Auto 0.000 X10*3/uL (0.0-0.012); NRBC Pct Auto 0.0 /100WBC (0.0-0.2); Platelet Count 255 X10*3/uL (160-400); Red Blood Count 4.33 X10*6/uL (4.20-5.50); White Blood Count 11.5 X10*3/uL (4.8-10.8)
== END 2025-04-01 10:01 | disposition home or self-care (01) ==
LOC: HO.HHCL 10:00
PROVIDERS: PCP Internal Medicine; Referring Provider Internal Medicine Geriatric Medicine; Visit Provider Internal Medicine Geriatric Medicine
DX: R30.0 Dysuria (principal); R10.30 Lower abdominal pain, unspecified; R31.0 Gross hematuria; R68.83 Chills (without fever); R11.2 Nausea with vomiting, unspecified
CPT/HCPCS: 36415; 85025; 87086; 87088; 87186